=== PATIENT | female | born 1955 | race Caucasian/White ===

== ENCOUNTER 2017-12-06 14:43 | Observation (INO) | payer OTHER, BC ==
[2017-12-06 19:22] LABS: ADD MAN DIFF? NO
[2017-12-06 19:24] LABS: BASOPHILS % 0.4 % (0.0-2.0); EOSINOPHILS # 0.4 10^3/ul (0.0-0.5); EOSINOPHILS % 5.3 % (0.0-7.0); HEMATOCRIT 42.8 % (37.0-47.0); HEMOGLOBIN 14.6 g/dl (12.0-16.0); LYMPHOCYTES % 26.1 % (15.0-51.0); MEAN CORPUSCULAR HEMOGLOBIN 28.5 pg (29.0-33.0); MEAN CORPUSCULAR HGB CONC 34.1 g/dl (32.0-37.0); MEAN CORPUSCULAR VOLUME 83.6 fl (82.0-101.0); MEAN PLATELET VOLUME 9.3 fl (7.4-10.4); MONOCYTE # 0.4 10^3/ul (0.3-0.9); MONOCYTES % 4.9 % (0.0-11.0); NEUTROPHIL # 4.9 10^3/ul (1.6-7.5); NEUTROPHILS % 62.9 % (39.0-77.0); PLATELET COUNT 279 10^3/UL (140-415); RED BLOOD COUNT 5.12 10^6/ul (4.20-5.40); RED CELL DISTRIBUTION WIDTH 11.9 % (11.5-14.5)
[2017-12-06 19:24] LABS: WHITE BLOOD COUNT 7.8 10^3/ul (4.8-10.8)
[2017-12-06 19:27] LABS: ADD UMIC NO; UR ASCORBIC ACID NEGATIVE (NEGATIVE); UR BILIRUBIN (Dip) NEGATIVE (NEGATIVE); UR BLOOD (Dip) NEGATIVE (NEGATIVE); UR CLARITY CLEAR (CLEAR); UR COLOR STRAW (YELLOW); UR GLUCOSE (Dip) NEGATIVE (NEGATIVE); UR KETONES (Dip) TRACE mg/dL (NEGATIVE); UR LEUKOCYTE ESTERASE (Dip) NEGATIVE Leu/ul (NEGATIVE); UR NITRITE (Dip) NEGATIVE (NEGATIVE); UR SPECIFIC GRAVITY (Dip) 1.004 (1.003-1.030); UR TOTAL PROTEIN (Dip) NEGATIVE (NEGATIVE); UR UROBILINOGEN (Dip) NEGATIVE (NEGATIVE)
[2017-12-06 19:29] LABS: INR 0.95; PARTIAL THROMBOPLASTIN TIME 27.1 Sec (25.0-35.0); PROTIME 12.8 Sec (11.9-14.9)
[2017-12-06 19:30] LABS: ANION GAP 19 (8-16); BLOOD UREA NITROGEN 10 mg/dl (7-20); CALCIUM 9.9 mg/dl (8.4-10.2); CARBON DIOXIDE 28 mmol/L (21-31); CHLORIDE 103 mmol/L (97-110); CHOL/HDL RATIO 3.9 RATIO; CHOLESTEROL 216 mg/dl (100-200); CREATININE 0.52 mg/dl (0.44-1.00); GLUCOSE 176 mg/dl (70-220); HDL CHOLESTEROL 55 mg/dl (35-98); LDL CHOLESTEROL,CALCULATED 135 mg/dl; POTASSIUM 3.5 mmol/L (3.5-5.1); SODIUM 146 mmol/L (135-144); TRIGLYCERIDES 130 mg/dl (0-149)
[2017-12-06 19:41] LABS: BARBITURATES Negative (NEGATIVE); BENZODIAZEPINES Negative (NEGATIVE); CANNABINOIDS Negative (NEGATIVE); COCAINE Negative (NEGATIVE); OPIATES Negative (NEGATIVE); TROPONIN-I < 0.012 ng/ml (0.000-0.120)
[2017-12-06 19:46] LABS: AMPHETAMINE/METHAMPHETAMINE Negative (NEGATIVE)
[2017-12-06] MEDS ORDERED: ACETAMINOPHEN 325 MG TAB PO ×2 (20:30→22:00)
[2017-12-06] MEDS ORDERED: ONDANSETRON 4 MG INJ IV ×2 (20:30→22:00)
[2017-12-06] MEDS ORDERED: NACL 0.9% 3 ML SYG IV (22:00)
[2017-12-06] MEDS ORDERED: ALBUTEROL/IPRATROPIUM (NEB) 3 ML AMP HHN (22:00)
[2017-12-06 23:15] LABS: CREATINE KINASE 44 IU/L (23-200)
[2017-12-06 23:29] LABS: CK INDEX 0.9; CK-MB 0.41 ng/ml (0.0-2.4); TROPONIN-I < 0.012 ng/ml (0.000-0.120)
[2017-12-06] MEDS: ASPIRIN 325 MG TAB PO (23:39)
[2017-12-07 03:54] LABS: ADD MAN DIFF? NO
[2017-12-07 04:15] LABS: HEMOGLOBIN A1C 8.1 % (0-5.9)
[2017-12-07 04:16] LABS: WHITE BLOOD COUNT 7.1 10^3/ul (4.8-10.8)
[2017-12-07 04:16] LABS: BASOPHILS % 0.6 % (0.0-2.0); EOSINOPHILS # 0.6 10^3/ul (0.0-0.5); EOSINOPHILS % 8.3 % (0.0-7.0); HEMOGLOBIN 13.3 g/dl (12.0-16.0); LYMPHOCYTES % 28.7 % (15.0-51.0); MEAN CORPUSCULAR HEMOGLOBIN 29.1 pg (29.0-33.0); MEAN CORPUSCULAR VOLUME 83.2 fl (82.0-101.0); MEAN PLATELET VOLUME 9.4 fl (7.4-10.4); MONOCYTE # 0.5 10^3/ul (0.3-0.9); MONOCYTES % 6.5 % (0.0-11.0); NEUTROPHIL # 3.9 10^3/ul (1.6-7.5); NEUTROPHILS % 55.5 % (39.0-77.0); PLATELET COUNT 258 10^3/UL (140-415); RED BLOOD COUNT 4.57 10^6/ul (4.20-5.40); RED CELL DISTRIBUTION WIDTH 12.2 % (11.5-14.5)
[2017-12-07 04:19] LABS: CREATINE KINASE 40 IU/L (23-200)
[2017-12-07 04:21] LABS: ALANINE AMINOTRANSFERASE 20 IU/L (13-69); ALBUMIN 3.9 g/dl (3.3-4.9); ALBUMIN/GLOBULIN RATIO 1.34; ALKALINE PHOSPHATASE 65 IU/L (42-121); ANION GAP 14 (8-16); ASPARTATE AMINO TRANSFERASE 22 IU/L (15-46); BILIRUBIN,INDIRECT 0.4 mg/dl (0-1.1); BILIRUBIN,TOTAL 0.4 mg/dl (0.2-1.3); BLOOD UREA NITROGEN 14 mg/dl (7-20); CALCIUM 9.3 mg/dl (8.4-10.2); CARBON DIOXIDE 27 mmol/L (21-31); CHLORIDE 109 mmol/L (97-110); CHOL/HDL RATIO 4.3 RATIO; CHOLESTEROL 192 mg/dl (100-200); CREATININE 0.61 mg/dl (0.44-1.00); GLUCOSE 185 mg/dl (70-220); HDL CHOLESTEROL 44 mg/dl (35-98); LDL CHOLESTEROL,CALCULATED 126 mg/dl; POTASSIUM 3.6 mmol/L (3.5-5.1); SODIUM 146 mmol/L (135-144); TOTAL PROTEIN 6.8 g/dl (6.1-8.1); TRIGLYCERIDES 112 mg/dl (0-149)
[2017-12-07 04:31] LABS: CK INDEX 1.1; CK-MB 0.43 ng/ml (0.0-2.4)
[2017-12-07 04:37] LABS: TROPONIN-I < 0.012 ng/ml (0.000-0.120)
[2017-12-07] MEDS: metFORMIN 500 MG TAB PO (10:14)
[2017-12-07] MEDS: ASPIRIN 81 MG TAB PO (10:14)
[2017-12-07] MEDS: ENOXAPARIN 40 MG/0.4 ML SYG SC (10:28)
[2017-12-07] MEDS ORDERED: LISINOPRIL 20 MG TAB PO (14:00)
[2017-12-07] MEDS ORDERED: GLUCAGON 1 MG INJ IM (14:30)
[2017-12-07] MEDS ORDERED: GLUCOSE GEL 15 GRAM TUBE BUCCAL (14:30)
[2017-12-07] MEDS ORDERED: GLUCOSE GEL 15 GRAM TUBE PO ×2 (14:30)
[2017-12-07] MEDS ORDERED: DEXTROSE 50% 50 ML SYRINGE IV ×2 (14:30)
[2017-12-07] MEDS ORDERED: INSULIN ASPART [NOVOLOG] 3 ML PEN SC (18:00)
[2017-12-07] MEDS ORDERED: ATORVASTATIN 20 MG TAB PO (21:00)
[2017-12-08] MEDS ORDERED: ACCU-CHEK XX (02:00)
== END 2017-12-07 17:25 | disposition home or self-care (01) ==
LOC: E/R 14:43 → 6WM 20:12
DX: G45.9 Transient cerebral ischemic attack, unspecified (principal); R07.9 Chest pain, unspecified; E11.9 Type 2 diabetes mellitus without complications; Z79.84 Long term (current) use of oral hypoglycemic drugs; I10 Essential (primary) hypertension
CPT/HCPCS: 36415; 70450; 71045; 80048; 80053; 80061; 80307; 81003; 82550; 82553; 83036; 83735; 84443; 84484; 85025; 85610; 85730; 93005; 93306; 93880; 97161; 99285-25; G0378